=== PATIENT | female | born 1945 | race Caucasian/White ===

== ENCOUNTER 2024-04-16 19:52 | Emergency (ER) | payer OTHER ==
[~2024-04-16] VITALS: Ht 157.5 cm; Wt 61.7 kg
[2024-04-16 19:58] VITALS: BP_SYST 147; PULSE 88; RESP 17; TEMP 96.6; O2SAT 95
[2024-04-16] MEDS ORDERED: MORPHINE 4 MG INJ. 4 MG/ML VIAL ONE (20:53)
[2024-04-16] MEDS: MORPHINE 4 MG INJ. 4 MG/ML VIAL IM ONE (20:56)
== END 2024-04-16 21:42 | disposition left against medical advice (07) ==
LOC: SED 19:52
DX: G89.4 Chronic pain syndrome (principal); J45.909 Unspecified asthma, uncomplicated; E11.9 Type 2 diabetes mellitus without complications; I10 Essential (primary) hypertension
CPT/HCPCS: 99283; 96374; J2270